=== PATIENT | male | born 1950 | race Caucasian/White ===

== ENCOUNTER → 2021-04-30 | Outpatient (CLI) | payer MEDICARE, BC ==
[~2021-04-30] MED LIST: ASPIR 8181 MG PO; DIOVAN320 MG PO; FENOFIBRIC ACI135 MG PO; LIPITOR TAB 2020 MG PO; NIACIN ER1000 MG PO; NORCO 5-325 TA1 EACH PO; NORFLEX 100 MG100 MG PO; NORVASC 5 MG TAB5 MG PO; PREVACID30 MG PO; SPIRIVA18 MCG INH; TOPROL XL25 MG PO; TRAMADOL HCL50 MG PO; VITAMIN D250000 UNIT PO; ZETIA10 MG PO
== END ==
LOC: KOH-I 13:58
DX: F17.210 Nicotine dependence, cigarettes, uncomplicated (principal); J43.9 Emphysema, unspecified
CPT/HCPCS: 71271

== ENCOUNTER → 2022-05-01 | Outpatient (CLI) | payer MEDICARE, BC | LOC: KOH-I 09:37 | DX: R91.1 Solitary pulmonary nodule (principal) | CPT/HCPCS: 71250 ==